=== PATIENT | female | born 1995 | race American Indian/Alaskan Native ===

== ENCOUNTER 2018-08-19 15:26 | Emergency (ER) | payer SELFPAY ==
[2018-08-19 20:11] LABS: HCG Qualitative,Urine Negative (Negative)
--- NOTE | 2018-08-19 20:11 | Emergency Department Report ---
ED Female HPI - General Chief complaint: Urogenital-Female Stated complaint: STD TESTING Source: patient Mode of arrival: Ambulatory Limitations: No Limitations - History of Present Illness Initial comments: This is a 22 year-old female who presents with vaginal discharge for 4-5 days. Patient was discharge is foul smell. She admits to unprotected intercourse with one male partner. Her last menstrual period was in 2017. Past medical history of PCO as. She denies pelvic pain, low back pain, frequency, urgency, dysuria, or vaginal bleeding. MD Complaint: vaginal discharge Onset/Timin -: days(s) Severity: mild Severity scale (0 -10): 0 Consistency: constant Improves with: none Worsens with: none Are you Now?: No Last Menstrual Period: 12/05/16 EDC: 09/11/17 Associated Symptoms: vaginal discharge. denies: vaginal bleeding, abdominal pain, nausea/vomiting, fever/chills, headaches, loss of appetite, dysuria, hematuria, rash, seizure, shortness of breath, syncope, weakness - Related Data Sexually active: Yes : 0 Para: 0 A: 0 Previous Rx's Medication Instructions Recorded Last Taken Type metroNIDAZOLE [Metronidazole] 500 mg PO BID #14 tablet 08/19/18 Unknown Rx ED Review of Systems ROS: Stated complaint: STD TESTING Other details as noted in HPI Constitutional: denies: chills, fever Respiratory: denies: cough, shortness of breath, wheezing Cardiovascular: denies: chest pain, palpitations Gastrointestinal: denies: abdominal pain, nausea, diarrhea Genitourinary: discharge. denies: urgency, dysuria Musculoskeletal: denies: back pain Neurological: denies: headache, weakness, paresthesias Psychiatric: denies: anxiety, depression ED Past Medical Hx - Past Medical History Previous Medical History?: Yes Additional medical history: PCOS - Surgical History Past Surgical History?: Yes Additional Surgical History: Tonsilectomy - Social History Smoking Status: Current Every Day Smoker Substance Use Type: None - Medications Home Medications: Home Medications Medication Instructions Recorded Confirmed Last Taken Type metroNIDAZOLE [Metronidazole] 500 mg PO BID #14 tablet 08/19/18 Unknown Rx ED Physical Exam - General Limitations: No Limitations General appearance: alert, in no apparent distress, obese (morbidly obese) - Respiratory Respiratory exam: Present: normal lung sounds bilaterally. Absent: respiratory distress - Cardiovascular Cardiovascular Exam: Present: regular rate, normal rhythm. Absent: systolic murmur, diastolic murmur, rubs, gallop - GI/Abdominal GI/Abdominal exam: Present: soft, normal bowel sounds. Absent: distended, tenderness, guarding, rebound, rigid, organomegaly, mass - External exam: Present: normal external exam Speculum exam: Present: erythema, vaginal discharge (malodorous greenish yellow discharge). Absent: cervical discharge, vaginal bleeding, foreign body, tissue, laceration Bi-manual exam: Present: normal bi-manual exam - Back Exam Back exam: Present: normal inspection. Absent: CVA tenderness (R), CVA tenderness (L) - Neurological Exam Neurological exam: Present: alert, oriented X3, normal gait - Psychiatric Psychiatric exam: Present: normal affect, normal mood - Skin Skin exam: Present: warm, dry, intact, normal color. Absent: rash ED Course Vital Signs 08/19/18 15:28 Temperature 98.0 F Pulse Rate 99 H Respiratory 16 Rate Blood Pressure 161/104 O2 Sat by Pulse 100 Oximetry ED Medical Decision Making - Lab Data Lab Results 08/19/18 Range/Units 19:38 Urine Color Yellow (Yellow) Urine Turbidity Clear (Clear) Urine pH 5.0 (5.0-7.0) Ur Specific [place] 1.028 (1.003-1.030) Urine Protein <15 mg/dl (Negative) mg/dL Urine Glucose (UA) Neg (Negative) mg/dL Urine Ketones Tr (Negative) mg/dL Urine Blood Neg (Negative) Urine Nitrite Neg (Negative) Ur Reducing Substances Not Reportable Urine Bilirubin Neg (Negative) Urine Ictotest Not Reportable Urine Urobilinogen < 2.0 (<2.0) mg/dL Ur Leukocyte Esterase Sm (Negative) Urine WBC (Auto) 5.0 (0.0-6.0) /HPF Urine RBC (Auto) 1.0 (0.0-6.0) /HPF U Epithel Cells (Auto) 2.0 (0-13.0) /HPF Urine Mucus 1+ /HPF Urine HCG, Qual Negative (Negative) - Medical Decision Making This is a 22-year-old -[place] female who presents with malodorous vaginal discharge for 5 days. Patient was examined by me. Vitals are stable and in no acute distress. Past medical history of PCOS. I obtained a wet prep and gonorrhea and chlamydia. Pelvic exam, urinalysis, urine hCG. Wet prep positive for polymorphicnuclear cells, clue cells less than or equal to 20%, negative Trichomonas and yeast. Pending gonorrhea and chlamydia. All other labs are unremarkable. Empirically treated with Rocephin 250 mg IM and azithromycin 1 g by mouth. Start metronidazole 500 mg by mouth twice a day 7 days. Patient instructed to follow up in 3-5 days for pending gonorrhea and chlamydia results. Discharged home in stable condition. Discussed prevention options. F/U with PCP or Health Department. Critical care attestation.: If time is entered above; I have spent that time in minutes in the direct care of this critically ill patient, excluding procedure time. ED Disposition Clinical Impression: Vaginal discharge, Exposure to STD, Acute vaginitis Disposition: TO HOME OR SELFCARE Is pt being admited?: No Does the pt Need Aspirin: No Condition: Stable Instructions: Vaginitis (ED), Safe Sex (ED), Sexually Transmitted Diseases (ED) Additional Instructions: Complete full course of antibiotics as prescribed. Avoid drinking alcohol while taking antibiotics and for 24 hours after completion. Continue safe sexual intercourse. Follow up with Primary Care Provider or health department. Prescriptions: metroNIDAZOLE [Metronidazole] 500 mg PO BID #14 tablet Referrals: [facility] [Outside] - 3-5 Days [facility] [Outside] - 3-5 Days [facility] [Outside] - 3-5 Days Forms: Work/School Release Form(ED) Time of Disposition: 21:30
[2018-08-19 20:12] LABS: Bilirubin,Urine NEG (Negative); Blood,Urine NEG (Negative); Color,Urine Yellow (Yellow); Mucus,Urine 1+ /HPF; Protein,Urine <15 mg/dL mg/dL (Negative); Urobilinogen,Urine < 2.0 mg/dL (<2.0)
[2018-08-19] MEDS ORDERED: ROCEPHIN IM ONE (21:31)
[2018-08-19] MEDS ORDERED: ZITHROMAX PO ONE (21:31)
[2018-08-19] MEDS ORDERED: XYLOCAINE 1% MPF 5 mL INFILTRATI ONE (21:31)
[2018-08-19 22:35] VITALS: BP 134/98
== END 2018-08-19 22:52 | disposition home or self-care (01) ==
LOC: ED 15:26
DX: N76.0 Acute vaginitis (principal); E28.2 Polycystic ovarian syndrome; F17.200 Nicotine dependence, unspecified, uncomplicated; Z90.89 Acquired absence of other organs
CPT/HCPCS: 81001; 81025; 87210; 87591; 96372; 99284; J0696